=== PATIENT | female | born 1990 | race Two or more races ===

== ENCOUNTER 2020-12-21 23:30 | Emergency (ER) | payer OTHER ==
[~2020-12-21] VITALS: Ht 165.1 cm; Wt 65.8 kg
[2020-12-22] MEDS ORDERED: KETO10TA2 PO (01:55)
[2020-12-27] MEDS ORDERED: ACETAMINOPHEN650 M2 (08:19)
== END 2020-12-22 02:10 | disposition home or self-care (01) ==
LOC: ER 23:30
DX: S80.01XA Contusion of right knee, initial encounter (principal); W18.39XA Other fall on same level, initial encounter; Y93.89 Activity, other specified; Y92.89 Other specified places as the place of occurrence of the external cause; Y99.8 Other external cause status